=== PATIENT | female | born 1990 | race Two or more races ===

== ENCOUNTER 2016-11-01 00:55 | Emergency (ER) | payer OTHER ==
[~2016-11-01] VITALS: Ht 157.5 cm; Wt 64.4 kg
[~2016-11-01 00:55] MED LIST: PREN1TAB48 PO
--- NOTE | 2016-11-01 01:13 | NUR ---
PT AMBULATORY TO ER BED 8 PT C/O LEFT FLANK PAIN X 4 DAYS. PT AOX4 RR EVEN AND UNLABORED. NO SOB NOTED. NAD NOTED. NO NVD AT THIS TIME. PT GOWNED AND PLACED ON MONITOR. PT NOT DIAPHORETIC. PT WAITING FOR MD HARDEN.
--- NOTE | 2016-11-01 01:23 | NUR ---
URINE COLLECTED. 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
--- NOTE | 2016-11-01 01:39 | NUR ---
DR. GATES AT BEDSIDE FOR EVAL.
[2016-11-01 01:50] LABS: APPEARANCE,URINE CLEAR (CLEAR); BILIRUBIN,URINE NEGATIVE (NEGATIVE); BLOOD, URINE NEGATIVE Ery/uL (NEGATIVE); COLOR,URINE YELLOW (YELLOW); KETONES,URINE NEGATIVE (NEGATIVE); LEUKOCYTE ESTERASE ,URINE TRACE (NEGATIVE); NITRITE, URINE NEGATIVE (NEGATIVE); PROTEIN,URINE NEGATIVE (NEGATIVE); UGLUCOSE NEGATIVE (NEGATIVE); UROBILINOGEN,URINE 0.2 EU/dL (0.2)
[2016-11-01 01:56] LABS: PREGNANCY TEST URINE QUAL NEGATIVE (NEGATIVE)
[2016-11-01 01:59] LABS: BACTERIA,URINE None seen /HPF (None Seen); MUCUS,URINE Rare /LPF (None Seen); RBC,URINE 0-2 /HPF (0-2); SQUAMOUS EPITHELIAL CELL,UR Moderate /HPF (None Seen)
--- NOTE | 2016-11-01 01:59 | NUR ---
ULTRASOUND AT BEDSIDE
[2016-11-01] MEDS ORDERED: IV NS 0.9% 1,000 ML BAG IV ONE (03:30)
[2016-11-01] MEDS ORDERED: ONDANSETRON HCL/PF 4 MG/2 ML VIAL IVP ONE (03:30)
[2016-11-01] MEDS ORDERED: HYDROMORPHONE INJ 2 MG/ML DISP.SYRIN IV ONE (03:30)
--- NOTE | 2016-11-01 03:53 | NUR ---
PT RETURNED FROM CT.
--- NOTE | 2016-11-01 03:57 | NUR ---
CALLED LAB FOR BLOOD DRAW. PER DR. GATES NOT TO START IV LINE
--- NOTE | 2016-11-01 04:06 | NUR ---
LAB AT BEDSIDE FOR BLOOD DRAW.
[2016-11-01 04:10] LABS: BASOPHILS % (AUTO) 0.5 % (0.0-2.0); EOSINOPHILS # (AUTO) 0.1 /CMM (0.0-0.7); EOSINOPHILS % (AUTO) 1.4 % (0.0-6.0); HEMATOCRIT 37 % (33-45); HEMOGLOBIN 12.5 g/dL (11.5-14.8); LYMPHOCYTES # (AUTO) 2.5 /CMM (0.8-4.8); LYMPHOCYTES % (AUTO) 35.7 % (20.0-44.0); MEAN CORPUSCULAR HEMOGLOBIN 29 PG (26.0-33.0); MEAN CORPUSCULAR HGB CONC 34 g/dl (31.0-36.0); MEAN CORPUSCULAR VOLUME 87 fL (82-100); MONOCYTES # (AUTO) 0.5 /CMM (0.1-1.30); MONOCYTES % (AUTO) 7.8 % (2.0-12.0); NEUTROPHILS # (AUTO) 3.8 /CMM (1.8-8.9); NEUTROPHILS % (AUTO) 54.6 % (43.0-81.0); PLATELET COUNT (AUTO) 232 /CMM (150-450); RED BLOOD CELL COUNT(AUTO) 4.26 MIL/uL (4.0-5.2); WHITE BLOOD COUNT (AUTO) 6.9 K/uL (4.3-11.0)
[2016-11-01 04:22] LABS: CALCIUM, SERUM 9.3 mg/dL (8.5-10.1); CREATININE 0.6 mg/dL (0.6-1.3); POTASSIUM 3.7 mmol/L (3.5-5.1)
[2016-11-01 04:25] LABS: INR 0.97 (0.87-1.13); PROTHROMBIN TIME 10.4 SECS (9.5-12.7)
[2016-11-01 04:27] LABS: ALBUMIN 4.1 g/dL (3.4-5.0); BILIRUBIN,DIRECT 0.1 mg/dL (0.0-0.2); BILIRUBIN,TOTAL 0.3 mg/dL (0.2-1.0); TOTAL PROTEIN, SERUM 7.9 g/dL (6.4-8.2)
[2016-11-01] MEDS ORDERED: KETOROLAC TROMETHAMINE INJ 30 MG/ML VIAL ONE (04:55)
[2016-11-01] MEDS ORDERED: KETOROLAC TROMETHAMINE INJ 30 MG/ML VIAL IV ONE (05:00)
--- NOTE | 2016-11-01 05:14 | NUR ---
DR. GATES AT BEDSIDE SPEAKING TO PT REGARDING RESULTS
--- NOTE | 2016-11-01 05:25 | NUR ---
Patient discharged to home in stable condition. Written and verbal after care instructions given. Patient verbalizes understanding of instruction. ambulatory with a steady gait
--- NOTE | 2016-11-01 05:25 | NUR ---
instructed not to drive. pt verbalize understanding. pt accompanied by
[2016-11-01 05:26] VITALS: BP 108/67
== END 2016-11-01 05:27 | disposition home or self-care (01) ==
LOC: ER 00:55
DX: N23 Unspecified renal colic (principal)
CPT/HCPCS: 36415; 74176; 76770; 76856; 80048; 80076; 81001; 83690; 84703; 85025; 85730; 96372; 99285; A4606; J1885; Z7610; 81000-TC

== ENCOUNTER 2017-03-23 15:51 | Emergency (ER) | payer OTHER ==
[~2017-03-23] VITALS: Ht 157.5 cm; Wt 63.5 kg
[2017-03-23 16:03] VITALS: BP 142/78
[2017-03-23] MEDS ORDERED: IBUPROFEN 600 MG TABLET PO ONE ×2 (16:30)
== END 2017-03-23 17:42 | disposition home or self-care (01) ==
LOC: ER 15:52
DX: J06.9 Acute upper respiratory infection, unspecified (principal); B34.9 Viral infection, unspecified; F17.200 Nicotine dependence, unspecified, uncomplicated
CPT/HCPCS: 87804 ×2; 99284; A4606; Z7610; 87400

== ENCOUNTER 2017-06-10 12:30 | Emergency (ER) | payer OTHER ==
[~2017-06-10] VITALS: Ht 152.4 cm; Wt 54.4 kg
[2017-06-10 12:31] VITALS: BP 143/85
[2017-06-10] MEDS ORDERED: IBUPROFEN 600 MG TABLET PO ONE ×2 (13:12→13:30)
== END 2017-06-10 13:18 | disposition home or self-care (01) ==
LOC: ER 12:31
DX: S13.4XXA Sprain of ligaments of cervical spine, initial encounter (principal); S20.312A Abrasion of left front wall of thorax, initial encounter; F17.200 Nicotine dependence, unspecified, uncomplicated; V49.49XA Driver injured in collision with other motor vehicles in traffic accident, initial encounter; Y93.89 Activity, other specified; Y92.410 Unspecified street and highway as the place of occurrence of the external cause; Y99.8 Other external cause status
CPT/HCPCS: A4606; Z7610